=== PATIENT | male | born 1975 ===

== ENCOUNTER 2022-08-06 13:41 | Emergency (ER) | payer OTHER ==
[~2022-08-06] VITALS: Ht 177.8 cm; Wt 97.7 kg
[2022-08-06 13:49] VITALS: BP 133/92
== END 2022-08-06 18:33 | disposition left against medical advice (07) ==
LOC: EMS 13:46
DX: R21 Rash and other nonspecific skin eruption (principal); R30.9 Painful micturition, unspecified
CPT/HCPCS: 99281; Z7502